=== PATIENT | male | born 1970 | race Caucasian/White ===

== ENCOUNTER → 2020-05-18 | Outpatient (CLI) | payer OTHER | LOC: HEART 5 09:50 | DX: Z01.818 Encounter for other preprocedural examination (principal); R06.02 Shortness of breath; R94.2 Abnormal results of pulmonary function studies; F17.210 Nicotine dependence, cigarettes, uncomplicated | CPT/HCPCS: 71046; 94060; 94729 ==

== ENCOUNTER → 2020-08-11 | Outpatient (CLI) | payer OTHER | LOC: SLEEP 10:36 | DX: R07.89 Other chest pain (principal); M19.90 Unspecified osteoarthritis, unspecified site; G47.33 Obstructive sleep apnea (adult) (pediatric) | CPT/HCPCS: 95811 ==